=== PATIENT | male | born 1990 | race Caucasian/White ===

== ENCOUNTER 2018-08-24 08:37 | Emergency (ER) | payer SELFPAY ==
[2018-08-24 08:37] VITALS: BMI 26.6
[2018-08-24 08:45] VITALS: BP 123/82; PULSE 58; RESP 18; TEMP 97.3; O2SAT 97
--- NOTE | 2018-08-24 09:44 | C.PDOC ---
History Of Present Illness 28 year old male presents to the ED for evaluation of worsening pain over the left lateral rib area for 5 days. 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 Denies falls, trauma, fever, numbness, tingling, and any other associated symptoms. Time Seen by Provider: 08/24/18 09:39 Chief Complaint (Nursing): Rib Injury History Per: Patient History/Exam Limitations: no limitations Onset/Duration Of Symptoms: Days Current Symptoms Are (Timing): Still Present Past Medical History Reviewed: Historical Data, Nursing Documentation, Vital Signs Vital Signs: Last Vital Signs Temp 97.3 F L 08/24/18 08:40 Pulse 58 L 08/24/18 08:40 Resp 18 08/24/18 08:40 BP 123/82 08/24/18 08:40 Pulse Ox 97 08/24/18 08:40 Family History: States: Unknown Family Hx - Social History Hx Tobacco Use: Yes Hx Alcohol Use: Yes Hx Substance Use: No - Immunization History Hx Tetanus Toxoid Vaccination: Yes Hx Influenza Vaccination: Yes Hx Pneumococcal Vaccination: Yes Review Of Systems Except As Marked, All Systems Reviewed And Found Negative. Constitutional: Negative for: Fever, Other (trauma. falls. ) Musculoskeletal: Positive for: Other (pain over the left lateral rib area.) Neurological: Negative for: Weakness, Numbness, Incoordination Physical Exam - Physical Exam Appears: Well, Non-toxic, No Acute Distress Skin: Normal Color, Warm, Dry, No Rash, No Ecchymosis Head: Atraumatic, Normacephalic Eye(s): bilateral: PERRL Neck: Normal ROM, Supple Chest: Symmetrical, No Deformity, Tenderness (to the intercostal space T5-T6, medial axillary line.), No Other (deformities. ) Respiratory: Normal Breath Sounds, No Accessory Muscle Use, No Rales, No Rhonchi, No Wheezing Neurological/Psych: Oriented x3, Normal Speech, Normal Cognition ED Course And Treatment O2 Sat by Pulse Oximetry: 97 (RA) Pulse Ox Interpretation: Normal Medical Decision Making Medical Decision Making: costochondral pain no rash clear lungs + positionally and digitally reproducable Plan: --Motrin. Progress/Update: Patient stable for discharge home. Disposition Doctor Will See Patient In The: Office Counseled Patient/Family Regarding: Studies Performed, Diagnosis - Disposition Referrals: [facility] [Outside] [facility] [Outside] [facility] [Outside] Disposition: HOME/ ROUTINE Disposition Time: 09:44 Condition: GOOD Additional Instructions: ice packs 1/2 hour per hour, nothing hot no hot showers motrin/advil 600 mg every 6 hours as needed avoid heavy lifting for 1 week normal work duties. Instructions: Costochondritis Forms: [employer] (Irish) - Clinical Impression Clinical Impression: Chest wall discomfort - Scribe Statement The provider has reviewed the documentation as recorded by the Scribe (Ada Gonzalez) Provider Attestation: All medical record entries made by the Scribe were at my direction and personally dictated by me. I have reviewed the chart and agree that the record accurately reflects my personal performance of the history, physical exam, medical decision making, and the department course for this patient. I have also personally directed, reviewed, and agree with the discharge instructions and disposition.
== END 2018-08-24 09:51 | disposition home or self-care (01) ==
LOC: C.ER 08:37
DX: R07.89 Other chest pain (principal)